=== PATIENT | female | born 1990 | race Caucasian/White ===

== ENCOUNTER 2017-08-21 23:07 | Emergency (ER) | payer BC ==
[2017-08-21 23:22] VITALS: TEMP 98.2
[2017-08-22 00:06] VITALS: RESP 20
--- NOTE | 2017-08-22 00:21 | EDPHY ---
H & P Time Seen by Provider: 08/21/17 23:34 HPI/ROS: CHIEF COMPLAINT: Right foot laceration HISTORY OF PRESENT ILLNESS: 26-year-old female presents to the emergency department laceration to her right foot. The patient was at home and slipped on something and there was a piece of broken glass on the ground and she cut the top of her right foot. The incident happened just prior to arrival. She believes her tetanus shot is current. She is able to bear weight. Denies any other trauma or injury. ROS: Denies numbness or tingling in her toes, pain in her right ankle. She denies retained foreign body. Past Medical/Surgical History: Orthopedic surgery Social History: Single and lives in [place] Smoking Status: Never smoked Physical Exam: On examination the patient has a 3 cm laceration to the dorsal aspect of her right foot at the base of the right great toe. She has full range of motion of her toes. She has normal sensation to light touch with normal 2 point discrimination. On further examination the patient has a laceration noted to extensor tendon of the right great toe. She is able to dorsiflex the right great toe against resistance. Strong dorsalis pedis pulse on the dorsal aspect of her right foot. No evidence of retained foreign body. No palpable tenderness. Constitutional: Initial Vital Signs Temperature (C) 36.8 C 08/21/17 23:19 Heart Rate 116 H 08/21/17 23:19 Respiratory Rate 17 08/21/17 23:19 Blood Pressure 132/95 H 08/21/17 23:19 O2 Sat (%) 96 08/21/17 23:19 O2 Delivery Mode Room Air Allergies/Adverse Reactions: BACTRUM Allergy (Mild, Uncoded 10/24/12 12:14) Itching Home Medications: Medication Instructions Recorded Bcp 05/06/11 VYVANSE 05/06/11 Cephalexin [Keflex] 500 mg PO QID #28 cap 08/22/17 MDM/Departure - MDM Procedures: Laceration repair. Verbal consent was obtained from the patient. The 3 cm laceration on the ft was anesthetized using 1% lidocaine with epinephrine. The wound was irrigated with saline, draped and explored to its base with a gloved finger. Laceration noted to the extensor tendon. Laceration of the tendon was not repaired. The wound was repaired with 4 0 Ethilon, 7 sutures. The wound repair was complex. The procedure was performed by myself. Medications Given: Discontinued Medications Cephalexin (Keflex 500 Mg Prepack#4) 1 btl TAKEHOME EDNOW ONE PRN Reason: Protocol Stop: 08/22/17 00:40 Last Admin: 08/22/17 00:53 Dose: 1 btl ED Course/Re-evaluation: 26-year-old female presents to the emergency department with laceration to her right foot. I do not think imaging studies are indicated. No palpable bony tenderness. No evidence of retained foreign body. On examination however the patient has an extensor tendon laceration noted to the right great toe. She does have an range of motion of her toes. The skin was closed and patient was placed in a postop shoe. She was given orthopedic referral will follow up on Wednesday or Wednesday to recheck. She understands that she may require repair of the extensor tendon laceration by the orthopedic surgeon. She was started on Keflex to prevent infection. - Depart Disposition: Home, Routine, Self-Care Clinical Impression: Laceration of right foot Qualifiers: Encounter type: initial encounter Qualified Code(s): S91.311A - Laceration without foreign body, right foot, initial encounter Contusion of right foot Qualifiers: Encounter type: initial encounter Qualified Code(s): S90.31XA - Contusion of right foot, initial encounter Laceration of extensor tendon of right foot Qualifiers: Encounter type: initial encounter Qualified Code(s): S96.921A - Laceration of unspecified muscle and tendon at ankle and foot level, right foot, initial encounter Condition: Good Instructions: Care For Your Stitches (ED), Laceration (ED), Acute Wounds (ED) Additional Instructions: You have a laceration of your extensor tendon of the right great toe. You need to follow up with an orthopedic surgeon on Wednesday or Wednesday to recheck. Keflex 500 mg 4 times daily for 1 week to prevent infection. Postop shoe to help minimize flexion. Prescriptions: Cephalexin [Keflex] 500 mg PO QID #28 cap Referrals: Rick Lynn MD [Medical Doctor] - 1-2 days without fail (Orthopedic surgeon on-call)
[2017-08-22] MEDS ORDERED: CEPHALEXIN 500MG PREPACK#4 BTL TAKEHOME ONE (00:39)
[2017-08-22 00:53] VITALS: BP 135/84; PULSE 128; O2SAT 97
== END 2017-08-22 01:03 | disposition home or self-care (01) ==
PROC: 0HQMXZZ Repair Right Foot Skin, External Approach (ICD-10-PCS; principal; 2017-08-21)
DX: S96.121A Laceration of muscle and tendon of long extensor muscle of toe at ankle and foot level, right foot, initial encounter (principal); S90.31XA Contusion of right foot, initial encounter; W25.XXXA Contact with sharp glass, initial encounter; Y92.009 Unspecified place in unspecified non-institutional (private) residence as the place of occurrence of the external cause; Y93.89 Activity, other specified
CPT/HCPCS: L4386